=== PATIENT | male | born 1945 | race Caucasian/White ===

== ENCOUNTER 2016-09-14 16:54 | Emergency (ER) | payer OTHER ==
--- NOTE | 2016-09-14 16:49 | EDPHY ---
H & P Time Seen by Provider: 09/14/16 16:49 HPI/ROS: CHIEF COMPLAINT: Dizziness HISTORY OF PRESENT ILLNESS: This patient is a 71 year old male who presents to the Emergency Department via EMS for complaints of sudden onset room-spinning dizziness with associated nausea beginning at 1430 today as he was walking up a flight of stairs. He reports that he experienced the room "oscillate 180 degrees " followed by acute nausea. He laid down on the floor, effectively alleviating the dizzy sensation. Upon arrival, he reports that his dizziness has subsided completely, but his nausea has persisted to the present. He also describes a sensation of generalized weakness, like he has been "washed out." He reports a mild headache localized to the center of his forehead. He denies numbness, tingling, focal weakness, or visual changes. No bloody or dark colored stools. He has a remote history of one episode of atrial fibrillation; no additional cardiac history. REVIEW OF SYSTEMS: Constitutional: No fever, no chills Eyes: No visual changes ENT: No sore throat Respiratory: No cough, no shortness of breath Cardiac: No chest pain Gastrointestinal: +nausea, no vomiting, no abdominal pain Genitourinary: No hematuria, no dysuria Musculoskeletal: No leg pain or swelling Skin: No rash Neurological: +dizziness now subsided, +frontal headache, no numbness, no focal weakness Psychiatric: No depression Past Medical/Surgical History: Hypertension (metoprolol), recurrent UTIs, remote history of testicular cancer, one prior episode of atrial fibrillation. Social History: , at bedside Physical Exam: General Appearance: Alert, no distress Eyes: Pupils equal and round, no conjunctival pallor or injection, no nystagmus ENT, Mouth: Mild hearing loss bilaterally at baseline, mucous membranes moist Neck: Normal inspection Respiratory: Lungs are clear to auscultation Cardiovascular: Regular rate and rhythm Gastrointestinal: Abdomen is soft and non- tender Neurological: Alert, oriented x3, cranial nerves II through XII intact, motor 5 /5, sensory intact to light touch Skin: Warm and dry, no rash Extremities: Nontender, no pedal edema Psychiatric: Mood and affect normal Constitutional: Initial Vital Signs Temperature (C) 36.6 C 09/14/16 17:01 Heart Rate 56 L 09/14/16 17: Respiratory Rate 14 09/14/16 17:01 Blood Pressure 177/80 H 09/14/16 17:01 O2 Sat (%) 100 09/14/16 17:01 O2 Delivery Mode Room Air Allergies/Adverse Reactions: oxycodone Allergy (Verified 09/14/16 17:00) Home Medications: Medication Instructions Recorded Flomax 09/14/16 Gabapentin 09/14/16 Marijuana 09/14/16 Meclizine HCl [Meclizine HCl 25 mg 25 mg PO TID PRN #15 tab 09/14/16 (RX,OTC)] Metoprolol Succinate 09/14/16 Ondansetron Odt [Zofran Odt 4 mg 4 mg PO Q4 PRN #6 tab 09/14/16 (*)] Medical Decision Making - Diagnostics EKG Interpretation: EKG interpreted by me reveals normal sinus rhythm, rate 56, no ST/T changes. Interpretation: normal EKG ED Course/Re-evaluation: 1655: Took EMS report at bedside. Vitals in transport: HR 70, BP 185/106. PACs on monitor. This 71-year-old male presents via EMS following multiple episodes of room- spinning dizziness with associated nausea beginning acutely at 1430 this afternoon. He describes each episode as exacerbated with movement of his head or when attempting to stand or walk, suggestive of vertigo. No concerning signs or symptoms suggestive of a central etiology for his vertigo. Neurologic exam is normal. He has a mild headache at time of presentation. His exam is benign. He has no nystagmus, no focal weakness, motor and sensation in tact throughout. Will proceed with labs and EKG. The patient will be placed on a quality assurance monitor final for observation. IV established. 1L IV NS and 4mg IV Zofran administered. Labs reviewed and are unremarkable. Troponin is negative. EKG is normal. The patient has remained in sinus rhythm on quality assurance monitor final for the duration of his visit. He was able to walk around the department without recurrence of vertigo. He will be discharged home in good condition with instructions to follow-up with her PCP to discuss long-term treatment for vertigo. Differential Diagnosis: The differential diagnosis for the patient's dizziness included but was not limited to peripheral and central causes of vertigo, orthostatic causes including dehydration, cardiogenic and neurogenic causes, and blood loss. - Data Points Laboratory Results: Laboratory Results 09/14/16 16:45 09/14/16 16:45 09/14/16 09/14/16 16:45 16:45 WBC 12.85 10^3/uL H 10^3/uL (3.80-9.50) RBC 5.08 10^6/uL 10^6/uL (4.40-6.38) Hgb 16.4 g/dL g/dL (13.7-17.5) Hct 46.7 % % (40.0-51.0) MCV 91.9 fL fL (81.5-99.8) MCH 32.3 pg pg (27.9-34.1) MCHC 35.1 g/dL g/dL (32.4-36.7) RDW 11.9 % % (11.5-15.2) Plt Count 256 10^3/uL 10^3/uL (150-400) MPV 10.6 fL fL (8.7-11.7) Neut % (Auto) 74.5 % H % (39.3-74.2) Lymph % (Auto) 15.7 % % (15.0-45.0) [place] % (Auto) 7.0 % % (4.5-13.0) Eos % (Auto) 1.6 % % (0.6-7.6) Baso % (Auto) 0.7 % % (0.3-1.7) Nucleat RBC Rel Count 0.0 % % (0.0-0.2) Absolute Neuts (auto) 9.58 10^3/uL H 10^3/uL (1.70-6.50) Absolute Lymphs (auto) 2.02 10^3/uL 10^3/uL (1.00-3.00) Absolute Monos (auto) 0.90 10^3/uL H 10^3/uL (0.30-0.80) Absolute Eos (auto) 0.20 10^3/uL 10^3/uL (0.03-0.40) Absolute Basos (auto) 0.09 10^3/uL 10^3/uL (0.02-0.10) Absolute Nucleated RBC 0.00 10^3/uL 10^3/uL (0-0.01) Immature Gran % 0.5 % % (0.0-1.1) Immature Gran # 0.06 10^3/uL 10^3/uL (0.00-0.10) Sodium 137 mEq/L mEq/L (134-144) Potassium 4.8 mEq/L mEq/L (3.5-5.2) Chloride 104 mEq/L mEq/L (97-110) Carbon Dioxide 22 mEq/l mEq/l (22-31) Anion Gap 11 mEq/L mEq/L (8-16) BUN 14 mg/dL mg/dL (7-23) Creatinine 0.7 mg/dL mg/dL (0.7-1.3) Estimated GFR > 60 Glucose 92 mg/dL mg/dL (70-100) Calcium 10.2 mg/dL mg/dL (8.5-10.4) Troponin I < 0.012 ng/mL ng/mL (0-0.034) Medications Given: Discontinued Medications Sodium Chloride (Ns) 500 mls @ 0 mls/hr IV ONCE ONE PRN Reason: As Directed Stop: 09/14/16 16:59 Last Admin: 09/14/16 17:14 Dose: 500 mls Departure - Departure Disposition: Home, Routine, Self-Care Clinical Impression: Vertigo Condition: Good Instructions: Vertigo (ED) Additional Instructions: 1. Take 25mg Meclizine every 6 hours as needed to treat episodes of vertigo ( room-spinning dizziness). 2. Follow-up with your primary care provider for reevaluation within 3-5 days and to discuss long-term treatment for vertigo. 3. Return to the Emergency Department if you experience episodes of fainting, heart palpitations, uncontrollable dizziness or vomiting, severe headache, numbness or weakness, or for other serious concerns. Referrals: Patient,NotPresent [Unknown] - As per Instructions Prescriptions: Meclizine HCl [Meclizine HCl 25 mg (RX,OTC)] 25 mg PO TID PRN #15 tab PRN Reason: Dizziness Ondansetron Odt [Zofran Odt 4 mg (*)] 4 mg PO Q4 PRN #6 tab PRN Reason: Nausea Report Scribed for: Sharlene Aragon Report Scribed by: Poppy Cervantes Date of Report: 09/14/16 Time of Report: 16:49 Physician Review and Approval Statement: 09/14/16 16:49 Portions of this note were transcribed by a medical record clerk. I personally performed a history, physical exam, medical decision making, and confirmed accuracy of information the transcribed note.
[2016-09-14] MEDS ORDERED: NS 500 ML IV ONE (16:58)
--- NOTE | 2016-09-14 17:07 | CPEKG ---
Heart Rate: 56 RR Interval: 1071 P-R Interval: 160 QRSD Interval: 82 QT Interval: 456 QTC Interval: 441 P Crosby: 12 QRS Crosby: -12 T Wave Crosby: 21 EKG Severity - NORMAL ECG - EKG Impression: SINUS RHYTHM Electronically Signed By: Sharlene Aragon 14-Sep-2016 22:13:14
[2016-09-14 17:16] LABS: % IMMATURE GRANULYOCYTES 0.5 % (0.0-1.1); ABSOLUTE IMMATURE GRANULOCYTES 0.06 10^3/uL (0.00-0.10); ADD DIFF? NO; ADD MORPH? NO; ADD SCAN? NO; ATYPICAL LYMPHOCYTE FLAG 0 (0-99); FRAGMENT RBC FLAG 0 (0-99); HEMATOCRIT 46.7 % (40.0-51.0); HEMOGLOBIN 16.4 g/dL (13.7-17.5); LEFT SHIFT FLG 0 (0-99); LIPEMIA HEMOLYSIS FLAG 90 (0-99); MEAN CELL HEMOGLOBIN 32.3 pg (27.9-34.1); MEAN CELL HEMOGLOBIN CONCENTR. 35.1 g/dL (32.4-36.7); MEAN CELL VOLUME 91.9 fL (81.5-99.8); MEAN PLATELET VOLUME 10.6 fL (8.7-11.7); PLATELET CLUMPS FLAG 0 (0-99); PLATELET COUNT 256 10^3/uL (150-400); RED BLOOD CELL COUNT 5.08 10^6/uL (4.40-6.38); RED CELL DISTRIBUTION WIDTH 11.9 % (11.5-15.2)
[2016-09-14 17:33] LABS: ANION GAP 11 mEq/L (8-16); CALCIUM 10.2 mg/dL (8.5-10.4); CARBON DIOXIDE 22 mEq/l (22-31); CHLORIDE 104 mEq/L (97-110); CREATININE 0.7 mg/dL (0.7-1.3); GLOMERULAR FILTRATION RATE > 60; GLUCOSE 92 mg/dL (70-100); POTASSIUM 4.8 mEq/L (3.5-5.2); SODIUM 137 mEq/L (134-144)
[2016-09-14 17:44] LABS: TROPONIN I < 0.012 ng/mL (0-0.034)
[2016-09-14] MEDS ORDERED: ONDANSETRON 4 MG/2 ML VIAL ONE (18:28)
[2016-09-14] MEDS ORDERED: ONDANSETRON 4 MG/2 ML VIAL IVP ONE (18:29)
[2016-09-14 19:03] VITALS: BP 140/80; PULSE 58; RESP 18; TEMP 98.8; O2SAT 95
== END 2016-09-14 19:03 | disposition home or self-care (01) ==
LOC: EDUNIT#
DX: R42 Dizziness and giddiness (principal); I10 Essential (primary) hypertension; Z85.47 Personal history of malignant neoplasm of testis
CPT/HCPCS: 93005; 96374; 99284; J2405

== ENCOUNTER → 2016-09-21 | Outpatient (CLI) | payer OTHER | LOC: BMCIMAGING 14:46 | PROVIDERS: ATTEND Registered Nurse General Practice | DX: R55 Syncope and collapse (principal); R42 Dizziness and giddiness; I10 Essential (primary) hypertension; I70.8 Atherosclerosis of other arteries ==

== ENCOUNTER → 2016-10-07 | Outpatient (CLI) | payer OTHER ==
[~2016-10-07] MED LIST: IOPAMIDOL (ISOVUE 370) 100 ML BTL IV ONE
== END ==
LOC: FIMAGING 13:43
PROVIDERS: ATTEND Psychiatry & Neurology Neurology
DX: R29.90 Unspecified symptoms and signs involving the nervous system (principal); R42 Dizziness and giddiness
CPT/HCPCS: 70498; Q9967

== ENCOUNTER 2018-05-24 14:14 | Emergency (ER) | payer OTHER, MEDICARE ==
[2018-05-24] MEDS ORDERED: NS 1,000 ML IV ONE (15:15)
[2018-05-24] MEDS ORDERED: IOPAMIDOL (ISOVUE 370) 75 ML BTL IV ONE (15:31)
--- NOTE | 2018-05-24 15:42 | EDPHY ---
General Time Seen by Provider: 05/24/18 14:53 Narrative: CLINICAL IMPRESSION: Abdominal wall contusion, periumbilical hernia ASSESSMENT/PLAN: Very pleasant 72-year-old male presents to the emergency department with abdominal wall pain after he was hit by a piece of wood he was cutting with a table saw when it kicked back at him. See HPI for full details. Patient also sustained a small laceration to the left index finger. He has applied skin glue to his finger and this does not appear to require sutures. Tetanus reported as up-to-date He has an intact distal neurovascular exam to the left hand. He has a notable 12 in superficial abrasion to the upper abdomen. No associated distention, rigidity, Craig sign. CT abdomen and pelvis with contrast shows no solid organ injury, hematoma, laceration. He has a 5.3 cm umbilical hernia without evidence of incarceration and reports that he had this prior to the trauma. I encouraged him to follow up with primary care in consider General surgery evaluation for his hernia. Close monitoring of symptoms at home, warning signs return to ED sooner outlined and discharge. DIFFERENTIAL DX: Differential includes but not limited to solid organ injury, abdominal wall contusion, finger laceration, neurovascular injury. ED PROCEDURES: See lab and/or imaging results below ED COURSE: 4:10 p.m.: Case discussed with Dr. Siu from Radiology. Patient has a 5.3 cm umbilical/periumbilical hernia with no evidence of incarceration. No solid organ hematoma or splenic laceration identified. Postoperative changes noted. CHIEF COMPLAINT: Abdominal pain, left index finger laceration HPI: This is a pleasant 72-year-old male presents to the emergency department with abdominal pain and a left finger laceration. 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 Patient was knocked to the ground by the impact. He also has a small cut to the left index finger. He went to Urgent Care was sent here. He has had numerous prior abdominal surgeries. He is complaining primarily of upper abdominal pain. He feels mildly nauseous but has not vomited. He is not anticoagulated. He reports his tetanus is up-to- date. PAST MEDICAL HISTORY: Hypertension, atrial fibrillation, testicular cancer, colon cancer See nurse/triage notes for additional history if applicable Pertinent Past Surgical History: Retroperitoneal node dissection and prior colon surgery Family History: Noncontributory Social History: Tetanus reported up-to-date, , here with his REVIEW OF SYSTEMS: All other systems negative Constitutional: No fever, no chills, appetite change. Cardiovascular: No chest pain, no palpitations. Respiratory: No cough, no shortness of breath. Gastrointestinal: Positive for abdominal pain, no vomiting, diarrhea. Genitourinary: No hematuria, dysuria, flank pain, pelvic pain Musculoskeletal: No back pain, joint swelling, joint pain, myalgias. Skin: No rashes, color change, positive for laceration Neurological: No headache, dizziness, weakness. PHYSICAL EXAM: General Appearance: Alert, oriented, appropriate, cooperative, NAD, well hydrated, non-toxic appearing, VSS, no hypoxia. Respiratory: There are no retractions, lungs are clear to auscultation. Cardiac: Regular rate and rhythm, no murmurs or gallops. Gastrointestinal: Abdomen is soft, superficial abrasion noted to upper abdomen measuring approximately 12 in horizontally. Patient is tender to palpation left upper quadrant more so than right upper quadrant. No obvious distention or rigidity. Negative craig Sign. bowel sounds normal, small ventral wall or umbilical hernia noted which patient states is chronic, no guarding or focal peritoneal findings. Neurological: [ Alert and oriented x 3, CN 2-12 grossly intact Skin: Warm, dry, no rashes, no nodules on palpation. See above Musculoskeletal: Extremities are symmetrical, full range of motion, no tenderness, deformity, swelling, or erythema. Left index finger with a small flap laceration on the medial proximal MCP joint. Full range of motion, distal neurovascular exam intact. No sutures indicated. Patient has applied skin glue and a Band-Aid. Psychiatric: Patient is oriented X 3, there is no agitation. MEDICAL DECISION MAKING: Patient was seen independently. Secondary supervising physician at time of evaluation was Dr. Reyna . Diagnosis: Abdominal wall contusion, periumbilical hernia . New, requires workup Summary: See Assessment and Plan for summary of ED visit Clinical lab tests: ordered / reviewed. Independent visualization of images, tracing, or specimens: Yes. Patient Progress: Stable. - History Smoking Status: Never smoked - Objective Vital Signs: Initial Vital Signs Temperature (C) 37.0 C 05/24/18 14:22 Heart Rate 64 05/24/18 14:22 Respiratory Rate 18 05/24/18 14:22 Blood Pressure 157/85 H 05/24/18 14:22 O2 Sat (%) 97 05/24/18 14:22 O2 Delivery Mode Room Air Allergies/Adverse Reactions: oxycodone Allergy (Verified 05/24/18 14:26) Home Medications: Medication Instructions Recorded Flomax 09/14/16 Gabapentin 09/14/16 Marijuana 09/14/16 Meclizine HCl [Meclizine HCl 25 mg 25 mg PO TID PRN #15 tab 09/14/16 (RX,OTC)] Metoprolol Succinate 09/14/16 Ondansetron Odt [Zofran Odt 4 mg 4 mg PO Q4 PRN #6 tab 09/14/16 (*)] Laboratory Results: 05/24/18 15:26 POC Hgb 16.0 gm/dL gm/dL (13.7-17.5) POC Hct 47 % % (40-51) POC Sodium 143 mEq/L mEq/L (135-145) POC Potassium 4.2 mEq/L mEq/L (3.3-5.0) POC Chloride 104 mEq/L mEq/L (97-110) POC BUN 15 mg/dL mg/dL (7-23) POC Creatinine 0.8 mg/dL mg/dL (0.7-1.3) POC Glucose 83 mg/dL mg/dL (70-100) Medications Given: Discontinued Medications Sodium Chloride (Ns) 1,000 mls @ 0 mls/hr IV EDNOW ONE; Wide Open PRN Reason: Protocol Stop: 05/24/18 15:16 Last Admin: 05/24/18 15:26 Dose: 1,000 mls Point of Care Test Results: Chemistry 05/24/18 15:26 POC Sodium 143 mEq/L mEq/L (135-145) POC Potassium 4.2 mEq/L mEq/L (3.3-5.0) POC Chloride 104 mEq/L mEq/L (97-110) POC BUN 15 mg/dL mg/dL (7-23) POC Creatinine 0.8 mg/dL mg/dL (0.7-1.3) POC Glucose 83 mg/dL mg/dL (70-100) ISTAT H&H 05/24/18 15:26 POC Hgb 16.0 gm/dL gm/dL (13.7-17.5) POC Hct 47 % % (40-51) Departure - Departure Disposition: Home, Routine, Self-Care Clinical Impression: Periumbilical hernia Abdominal wall contusion Qualifiers: Encounter type: initial encounter Qualified Code(s): S30.1XXA - Contusion of abdominal wall, initial encounter Condition: Good Instructions: Umbilical Hernia (ED) Additional Instructions: DISCHARGE INSTRUCTIONS FROM YOUR DOCTOR Thank you for visiting our emergency department today. Please keep in mind that discharge from the emergency department does not mean that there is nothing wrong - it simply means that we have not identified an emergency condition that requires further evaluation or treatment in the hospital. You should always plan to follow up with primary care for re-evaluation of your condition in the next 2-3 days. If you have been referred to a specialist, please call as soon as possible (today or tomorrow) to schedule your follow up appointment at the appropriate time. CT SCAN OF YOUR ABDOMEN SHOWED A 5.3 CM UMBILICAL HERNIA. YOU OTHERWISE HAVE NO SOLID ORGAN INJURY, HEMATOMA OR LACERATION. MONITOR SYMPTOMS CLOSELY. PLEASE FOLLOW-UP WITH PRIMARY CARE. YOUR HERNIA IS NOT INCARCERATED AND DOES NOT REQUIRE EMERGENT SURGERY HOWEVER IF THIS BOTHERS YOU YOU MAY WANT TO CONSIDER GENERAL SURGERY FOLLOW-UP. A REFERRAL WAS GIVEN. RETURN TO THE EMERGENCY DEPARTMENT FOR WORSENING ABDOMINAL PAIN, DISTENTION, RIGIDITY, FEVERS , NAUSEA VOMITING, DIFFICULTY HAVING BOWEL MOVEMENTS, OR ANY OTHER CONCERNS. People present with illnesses and injuries in different ways, and it is always possible that we have missed something. You may always return for re-evaluation if symptoms worsen or if they are not improving or if you develop new/different symptoms. Again, thank you for choosing our emergency department. We hope that you feel better. Referrals: Yves Messer MD [Medical Doctor] - 3-4 days, if not improved Monica Benton MD [Primary Care Provider] - 1-2 days without fail
[2018-05-24 16:33] VITALS: BP 143/72
== END 2018-05-24 16:34 | disposition home or self-care (01) ==
DX: S30.1XXA Contusion of abdominal wall, initial encounter (principal); K42.9 Umbilical hernia without obstruction or gangrene; E86.9 Volume depletion, unspecified; W31.2XXA Contact with powered woodworking and forming machines, initial encounter; Y92.008 Other place in unspecified non-institutional (private) residence as the place of occurrence of the external cause
CPT/HCPCS: 74177; 96360; 99285; Q9967; 82435-PO; 82565-PO; 82947-PO; 84132-PO; 84295-PO; 84520-PO; 85014-ER